=== PATIENT | male | born 1965 | race Caucasian/White ===

== ENCOUNTER 2018-08-17 20:32 | Emergency (ER) | payer OTHER ==
[2018-08-17 20:33] VITALS: BMI 29.9
[2018-08-17 20:48] VITALS: BP 159/87; PULSE 83; RESP 18; TEMP 98.1; O2SAT 100
--- NOTE | 2018-08-17 21:01 | C.PDOC ---
History Of Present Illness 52 year old male presents to the emergency department with complains of cough, cold, congestion for one week. Patient denies shortness of breath, nausea, vomiting, diarrhea, body aches, and dizziness. Time Seen by Provider: 08/17/18 20:52 Chief Complaint (Nursing): Cough, Cold, Congestion History Per: Patient History/Exam Limitations: no limitations Onset/Duration Of Symptoms: Other (one week) Location Of Pain: Throat Associated Symptoms: Cough, Nasal Congestion. denies: Nausea, Vomiting, Diarrhea Past Medical History Reviewed: Historical Data, Nursing Documentation, Vital Signs Vital Signs: Last Vital Signs Temp 98.1 F 08/17/18 20:45 Pulse 83 08/17/18 20:45 Resp 18 08/17/18 20:45 BP 159/87 H 08/17/18 20:45 Pulse Ox 100 08/17/18 20:45 - Medical History PMH: Diabetes, HTN, Hypercholesterolemia Denies: HIV, Chronic Kidney Disease Surgical History: No Surg Hx - [facility] Procedures INJECT/INFUSE NEC (06/27/13) Family History: States: No Known Family Hx - Social History Hx Alcohol Use: Yes Hx Substance Use: No - Immunization History Hx Tetanus Toxoid Vaccination: No Hx Influenza Vaccination: Yes Hx Pneumococcal Vaccination: No Review Of Systems Except As Marked, All Systems Reviewed And Found Negative. Constitutional: Negative for: Fever ENT: Positive for: Nose Congestion, Throat Pain Respiratory: Positive for: Cough. Negative for: Shortness of Breath Gastrointestinal: Negative for: Nausea, Vomiting, Diarrhea Neurological: Negative for: Dizziness Physical Exam - Physical Exam Appears: Well, Non-toxic, No Acute Distress Skin: Normal Color, Warm, Dry Head: Atraumatic, Normacephalic Eye(s): bilateral: Normal Inspection, PERRL, EOMI Nose: Normal Oral Mucosa: Moist Throat: Normal, No Erythema, No Exudate Neck: Normal, Supple Chest: Symmetrical, No Tenderness Cardiovascular: Rhythm Regular, No Murmur Respiratory: No Rales, No Rhonchi, No Wheezing Gastrointestinal/Abdominal: Soft, No Tenderness, No Guarding, No Rebound Neurological/Psych: Oriented x3, Normal Speech, Normal Cognition ED Course And Treatment O2 Sat by Pulse Oximetry: 100 (RA) Pulse Ox Interpretation: Normal Medical Decision Making Medical Decision Making: Patient denied swab of throat. Disposition Counseled Patient/Family Regarding: Diagnosis, Need For Followup - Disposition Referrals: Juan Luis Hayward MD [Primary Care Provider] - Disposition: HOME/ ROUTINE Disposition Time: 21:04 Condition: STABLE Prescriptions: Promethazine DM [Phenergan DM Syrup] 5 ml PO Q4H PRN #100 ml PRN Reason: Cough And Congestion Instructions: Upper Respiratory Infection (ED) Forms: [facility] (Niuean), Gen Discharge Inst Niuean Print Language: TAMAZIGHT - POA Present On Arrival: None - Clinical Impression Clinical Impression: Upper respiratory infection - Scribe Statement The provider has reviewed the documentation as recorded by the Scribe (Deuce Sarahqvi)
== END 2018-08-17 21:13 | disposition home or self-care (01) ==
LOC: SUPCPDRO 20:32 → C.ER 20:32
DX: J06.9 Acute upper respiratory infection, unspecified (principal); F17.210 Nicotine dependence, cigarettes, uncomplicated

== ENCOUNTER 2018-09-12 18:25 | Emergency (ER) | payer OTHER ==
[2018-09-12 18:31] VITALS: BMI 32.2
[2018-09-12 18:33] VITALS: BP 156/84; PULSE 82; RESP 16; TEMP 98.4; O2SAT 98
[2018-09-12] MEDS ORDERED: Naproxen 550 mg Tab PO STA (18:49)
[2018-09-12] MEDS ORDERED: Naproxen 550 mg Tab PO ONE (19:03)
--- NOTE | 2018-09-12 19:28 | C.PDOC ---
History Of Present Illness 52-year-old male presents to the ED for evaluation of left heel pain which began around one month ago, but has worsened over the past week. Patient reports experiencing pain that is worse with walking. He denies recent falls/injuries. Time Seen by Provider: 09/12/18 18:34 Chief Complaint (Nursing): Lower Extremity Problem/Injury History Per: Patient History/Exam Limitations: no limitations Onset/Duration Of Symptoms: Days Current Symptoms Are (Timing): Still Present Additional History Per: Patient - Ankle/Foot Description Of Injury: denies: Fell, Struck With Object, Struck Against Object, Twisted Past Medical History Reviewed: Historical Data, Nursing Documentation, Vital Signs Vital Signs: Last Vital Signs Temp 98.4 F 09/12/18 18:31 Pulse 82 09/12/18 18:31 Resp 16 09/12/18 18:31 BP 156/84 H 09/12/18 18:31 Pulse Ox 98 09/12/18 18:31 - Medical History PMH: Diabetes, HTN, Hypercholesterolemia Denies: HIV, Chronic Kidney Disease Surgical History: No Surg Hx - [facility] Procedures INJECT/INFUSE NEC (06/27/13) Family History: States: Unknown Family Hx - Social History Hx Alcohol Use: Yes Hx Substance Use: No - Immunization History Hx Tetanus Toxoid Vaccination: No Hx Influenza Vaccination: Yes Hx Pneumococcal Vaccination: No Review Of Systems Musculoskeletal: Positive for: Other (left heel pain ) Physical Exam - Physical Exam Appears: Non-toxic, No Acute Distress, Other (comfortable ) Skin: Normal Color, Warm, Dry Extremity: Normal ROM, Tenderness (mild, to inferior and posterior aspects of right heel ), No Calf Tenderness, Capillary Refill (less than 2 seconds ), No Deformity, No Swelling, No Other (erythema ) Pulses: Left Dorsalis Pedis: Normal, Right Dorsalis Pedis: Normal Neurological/Psych: Oriented x3, Normal Speech, Normal Cognition, Normal Motor, Normal Sensation ED Course And Treatment O2 Sat by Pulse Oximetry: 98 (on RA ) Pulse Ox Interpretation: Normal Progress Note: left foot XR ordered, shows a heel spur at the achilles tendon insertion site. Naproxen PO given. On reassessment, patient is resting comfortably, showing no signs of distress and is stable for discharge. Patient is advised to follow up with a ror engineer within 1-2 days for further evaluation. Disposition Counseled Patient/Family Regarding: Studies Performed, Diagnosis, Need For Followup, Rx Given - Disposition Referrals: [facility] [Outside] [facility] [Outside] Disposition: HOME/ ROUTINE Disposition Time: 19:25 Condition: STABLE Additional Instructions: FOLLOW UP WITH PODIATRY WITHIN 1 WEEK USE MEDICATION NEEDED RETURN TO ER IF SYMPTOMS WORSEN Prescriptions: Naproxen 375 mg PO BID PRN #20 tablet PRN Reason: pain Instructions: Heel Pain (Caused by Plantar Fasciitis) (DC), Heel Spurs (DC) Forms: [employer] (Paraguayan) Print Language: ARMENIAN - Clinical Impression Clinical Impression: Heel spur, Plantar fasciitis - Scribe Statement The provider has reviewed the documentation as recorded by the Scribe (Janki Macdonald) Provider Attestation: All medical record entries made by the Scribe were at my direction and personally dictated by me. I have reviewed the chart and agree that the record accurately reflects my personal performance of the history, physical exam, medical decision making, and the department course for this patient. I have also personally directed, reviewed, and agree with the discharge instructions and disposition.
--- NOTE | 2018-09-13 12:11 | RAD ---
Date of service: 09/12/2018 PROCEDURE: Left Foot Radiographs. HISTORY: left foot/heel pain COMPARISON: None. FINDINGS: BONES: No acute fracture or destructive bony lesion identified. JOINTS: Normal. SOFT TISSUES: Normal. OTHER FINDINGS: None. IMPRESSION: Unremarkable left foot radiographs.
== END 2018-09-12 19:34 | disposition home or self-care (01) ==
LOC: C.ER 18:25
DX: M72.2 Plantar fascial fibromatosis (principal); M77.32 Calcaneal spur, left foot; E11.9 Type 2 diabetes mellitus without complications; E78.00 Pure hypercholesterolemia, unspecified; I10 Essential (primary) hypertension